=== PATIENT | female | born 1990 | race Caucasian/White ===

== ENCOUNTER 2019-02-26 16:16 | Inpatient (IN) ==
[2019-02-26] MEDS ORDERED: LACTATED RINGERS 1,000 ML IV ONE (17:24)
[2019-02-26 18:02] LABS: Basophils # 0.1 10*3/uL (0.0-0.2); Basophils % 0.5 % (0.0-0.8); Eosinophils # 0.1 10*3/uL (0.0-0.87); Eosinophils % 0.5 % (0.00-10.9); Hematocrit 36.9 VOL% (35.7-47.0); Hemoglobin 11.9 GM/DL (12.0-16.0); Immature Granulocytes % 4.4 %; Immature Granulocytes Absolute 0.57 #; Lymphocytes # 2.1 10*3/uL (1.4-4.0); Lymphocytes % 16.3 % (21.3-54.2); Mean Corpuscular HGB Conc 32.2 GM/DL (32-36); Mean Corpuscular Volume 91.6 FL (87-102); Mean Platelet Volume 10.9 FL (9.6-12.0); Monocytes % 7.2 % (1.7-12.7); Neutrophils % 71.1 % (38.7-73.9); Platelet Count 248 T/CUMM (130-400); Red Blood Count 4.03 MC/CUMM (3.8-5.5); Red Cell Distribution Width 14.2 % (9.3-17.3)
[2019-02-26 18:26] LABS: Band Neutrophils 2 % (0-10); Lymphocytes 14 % (20-55); Platelet Estimate Normal; Segmented Neutrophils 79 % (50-85); Total Cells Counted 100
[2019-02-26] MEDS ORDERED: ONDANSETRON 4 MG/2 ML VIAL IV PRN ×2 (18:34→20:31)
[2019-02-26] MEDS ORDERED: CITRIC ACID/SODIUM CITRATE 30 ML UDCUP PO ONE (18:38)
[2019-02-26] MEDS ORDERED: OXYTOCIN/LR 30 UNIT/1,000 ML BAG IV ONE (18:43)
[2019-02-26] MEDS ORDERED: OXYTOCIN 10 UNIT/ML VIAL IM ONE (18:43)
[2019-02-26] MEDS ORDERED: FAMOTIDINE 20 MG/2 ML VIAL IV ONE (18:43)
[2019-02-26] MEDS ORDERED: LACTATED RINGERS 1,000 ML IV SCH ×2 (19:00→21:00)
[2019-02-26] MEDS ORDERED: ceFAZolin 3,000 MG in SYRINGE 1 EACH IV ONE (20:00)
[2019-02-26] MEDS ORDERED: miSOPROStol 200 MCG TABLET ONE (20:02)
[2019-02-26] MEDS ORDERED: METHYLERGONOVINE 0.2 MG/1 ML AMP ONE (20:03)
[2019-02-26] MEDS ORDERED: SIMETHICONE CHEW 80 MG TABLET PO PRN (20:31)
[2019-02-26] MEDS ORDERED: RHO(D) IMMUNE GLOBULIN 300 MCG SYRINGE IM ONE (20:31)
[2019-02-26] MEDS ORDERED: ACETAMINOPHEN 325 MG TABLET PO PRN (20:31)
[2019-02-26] MEDS ORDERED: OXYTOCIN/LR 20 UNIT/1,000 ML BAG IV ONE (20:31)
[2019-02-26 20:52] LABS: Apearance,Urine CLEAR (Clear); Bacteria,Urine Occasional /HPF (Few); Bilirubin,Urine Negative (Negative); Blood, Urine Negative (Negative); Glucose,Urine (UA) Negative (Negative); Ketones,Urine 20 mg/dL (Negative); Nitrite,Urine Negative (Negative); Protein,Urine Negative; RBC,Urine <1 /HPF (0-4); Urine Color Straw (Yellow); Urine Specific Gravity 1.006 (1.001-1.035); Urine Urobilinogen < 2.0 EU/DL (0.2-1.0); WBC,Urine 1 /HPF (0-6)
[2019-02-26 21:22] LABS: Cord Venous Blood HCO3 22.8 MMOL/L; Cord Venous Blood PO2 36.2
[2019-02-26] MEDS ORDERED: fentaNYL 100 MCG/2 ML VIAL ONE (21:30)
[2019-02-26] MEDS ORDERED: MORPHINE 10 MG/10 ML VIAL ONE (21:31)
[2019-02-26] MEDS ORDERED: BUPIVACAINE SPINAL 0.75% 2 ML AMP SPINAL ONE (21:31)
[2019-02-26] MEDS ORDERED: PROMETHAZINE 25 MG/1 ML VIAL ONE (21:31)
[2019-02-26] MEDS ORDERED: diphenhydrAMINE 50 MG/1 ML VIAL ONE (21:31)
[2019-02-27] MEDS: DOCUSATE SODIUM 100 MG CAPSULE PO SCH ×3 (00:42→20:36)
[2019-02-27] MEDS ORDERED: HydrOXYzine PAMOATE 25 MG CAPSULE PO PRN (02:10)
[2019-02-27] MEDS: ceFAZolin 1,000 MG in SYRINGE 1 EACH IV SCH ×2 (04:12→11:51)
[2019-02-27 05:46] LABS: Basophils % 0.3 % (0.0-0.8); Eosinophils % 0.4 % (0.00-10.9); Hematocrit 30.7 VOL% (35.7-47.0); Hemoglobin 9.7 GM/DL (12.0-16.0); Immature Granulocytes % 2.5 %; Immature Granulocytes Absolute 0.27 #; Lymphocytes # 1.7 10*3/uL (1.4-4.0); Mean Corpuscular HGB Conc 31.6 GM/DL (32-36); Mean Corpuscular Volume 91.4 FL (87-102); Mean Platelet Volume 10.5 FL (9.6-12.0); Neutrophils % 71.8 % (38.7-73.9); Platelet Count 173 T/CUMM (130-400); Red Blood Count 3.36 MC/CUMM (3.8-5.5); Red Cell Distribution Width 14.5 % (9.3-17.3); White Blood Count 10.9 T/CUMM (4-12)
[2019-02-27] MEDS: MAGNESIUM HYDROXIDE SUSP 30 ML UDCUP PO PRN ×2 (08:06→20:36)
[2019-02-27] MEDS: HydrOXYzine PAMOATE 25 MG CAPSULE PO PRN ×2 (08:06→20:37)
[2019-02-27] MEDS: MULTIVITAMIN (PRENATAL) TABLET PO SCH (08:06)
[2019-02-27 12:34] LABS: Basophils % 0.2 % (0.0-0.8); Eosinophils % 0.2 % (0.00-10.9); Hematocrit 32.1 VOL% (35.7-47.0); Hemoglobin 10.2 GM/DL (12.0-16.0); Immature Granulocytes % 2.3 %; Lymphocytes # 2.4 10*3/uL (1.4-4.0); Lymphocytes % 18.4 % (21.3-54.2); Mean Corpuscular HGB Conc 31.8 GM/DL (32-36); Mean Corpuscular Volume 91.7 FL (87-102); Mean Platelet Volume 10.3 FL (9.6-12.0); Monocytes % 5.8 % (1.7-12.7); Neutrophils % 73.1 % (38.7-73.9); Platelet Count 193 T/CUMM (130-400); Red Cell Distribution Width 14.4 % (9.3-17.3); White Blood Count 12.9 T/CUMM (4-12)
[2019-02-27] MEDS: IBUPROFEN 800 MG TABLET PO PRN ×2 (13:33→20:37)
[2019-02-28] MEDS: IBUPROFEN 800 MG TABLET PO PRN (06:11)
[2019-02-28 07:32] VITALS: BP 133/66
[2019-02-28] MEDS: DOCUSATE SODIUM 100 MG CAPSULE PO SCH (08:16)
[2019-02-28] MEDS: MULTIVITAMIN (PRENATAL) TABLET PO SCH (08:16)
[2019-02-28] MEDS ORDERED: DIPH/TET/ACEL PERT BOOSTER VACCINE 0.5 ML VIAL IM ONE (08:51)
== END 2019-02-28 11:45 | disposition home or self-care (01) | DRG 785 ==
LOC: N.LAB 16:16 → N.LD 16:40 → N.OB 02-27 00:22
PROVIDERS: ADMIT Obstetrics & Gynecology; ATTEND Obstetrics & Gynecology